=== PATIENT | female | born 1980 | race Hispanic/Latino ===

== ENCOUNTER 2020-06-27 19:14 | Emergency (ER) | payer OTHER ==
[~2020-06-27 19:14] MED LIST: Iopamidol 370 76% 100 ML VIAL ONE
[2020-06-27 20:02] LABS: Bilirubin Negative (Negative); Blood, Urine Negative (Negative); Clarity Clear (Clear); Glucose, Urine (Dipstick) Normal (Negative); Ketone, Urine Negative (Negative); Leukocyte Negative Leu/uL (Negative); Nitrite Negative (Negative); Protein, Urine (Dipstick) Negative (Neg-Trace); Specific Gravity, Urine 1.012 (1.002-1.036); Urobilinogen Normal mg/dL (Less than 2)
[2020-06-27 20:04] LABS: Pregnancy Test - Urine (BHCG) Negative (Negative); Pregu Control Background? CLEAR/WHITE (CLR/WHITE); Pregu Control Bar Appear? YES (CONTROL BAR); Specific Gravity 1.012 (1.002-1.036)
[2020-06-27 21:00] LABS: #Basophils 0.1 thou/uL (0.0-0.2); #Eosinphils 0.2 thou/uL (0.0-0.7); #Lymphocytes 1.6 thou/uL (1.20-3.40); #Monocytes 0.5 thou/uL (0.11-0.59); %Basophils 1.2 % (0.0-1.0); %Eosinophils 3.1 % (0.0-10.0); %Lymphocytes 30.2 % (21.0-51.0); %Neutrophils 56.5 % (42.0-75.0); Anisocytosis SLIGHT = 6-15 cells (100X) (0-5/hpf); Hemoglobin 9.4 g/dL (12.0-16.0); MDiff Complete? YES; Mean Corpuscular HGB CONC 31.4 g/dL (32.0-36.0); Mean Corpuscular Hemoglobin 22.7 pg (27.0-31.0); Mean Corpuscular Volume 72.5 fL (78.0-98.0); Mean Platelet Volume 10.6 fL (7.4-10.4); Platelet Count 200 thou/uL (130-400); Red Blood Cell (RBC) Count 4.13 mill/uL (4.20-5.40); White Blood Cell (WBC) Count 5.3 thou/uL (4.8-10.8)
[2020-06-27 21:04] LABS: ALT (SGPT) 14 U/L (8-55); AST (SGOT) 24 U/L (5-34); Albumin 4.2 g/dL (3.5-5.0); Alkaline Phosphatase 55 U/L (40-110); Anion Gap 13 mmol/L (10-20); BUN (Urea Nitrogen) 11 mg/dL (7.0-18.7); Bilirubin, Total 0.4 mg/dL (0.2-1.2); Calc. Creatinine Clearance 0 mL/min (70-130); Carbon Dioxide 22 mmol/L (22-29); Chloride 105 mmol/L (98-107); Estimated GFR-MDRD 85; Globulin 3.1 g/dL (2.4-3.5); Glucose 87 mg/dL (70-105); Potassium 4.2 mmol/L (3.5-5.1); Protein, Total 7.3 g/dL (6.0-8.3); Sodium 136 mmol/L (136-145)
[2020-06-27] MEDS ORDERED: Ondansetron PF 4 MG/2 ML Vial ONE (22:40)
[2020-06-27] MEDS ORDERED: Morphine 4 MG/ML VIAL ONE (22:40)
--- NOTE | 2020-06-27 22:45 | CT ---
CT Abdomen Pelvis W Con History: Left lower quadrant pain Comparison: None. Findings: Lung bases are clear. No pericardial effusion. Gallbladder, liver, spleen are unremarkable. Pancreas is normal. Celiac trunk and superior mesenteric arteries are patent along with the portal ve in. No hydronephrosis. Symmetric renal enhancement. The left gonadal vein is markedly distended with reflux contrast. The appendix is felt to be visualized and appears normal. No acute osseous abnormality. Impression: 1. Normal appendix. 2. Dilated left gonadal vein with contrast reflux can be a cause a left lower quadrant pain from pelv ic congestion.
== END 2020-06-27 23:55 | disposition home or self-care (01) ==
LOC: ERS 19:14
DX: R10.31 Right lower quadrant pain (principal); D64.9 Anemia, unspecified; R11.0 Nausea
CPT/HCPCS: 36415; 74177; 80053; 81003; 81025; 85025; 96374; 96375; J2270; J2405